=== PATIENT | female | born 1950 | race Two or more races ===

== ENCOUNTER 2016-09-21 00:41 | Emergency (ER) | payer MEDICAID, OTHER ==
[~2016-09-21] VITALS: Ht 152.4 cm; Wt 52.2 kg
--- NOTE | 2016-09-21 00:53 | NUR ---
Pt walked into ER c/o fall that happen at 1700 on 09/20/16. Pt states was [place] and tripped on suit case. Pt states hit head on floor and now feeling dizzy. Pt is unsure is she had LOC. pt is alert, oriented x 2, no resp distress noted or reported upon assessment... md at bedside...
[2016-09-21] MEDS ORDERED: NEOMY/BACITRA/POLYMYXIN B OINT UD PACKET TP ONE ×2 (02:00→02:06)
--- NOTE | 2016-09-21 02:02 | NUR ---
Note undone in EDM - 09/21/16 at 0205 by JUAN FRANCISCO Patient does not wish to proceed with medical care recommended by Dr. Morgan ). Patient given information related to possible complications, up to and including , which could occur as a result of leaving the hospital at this time. Patient verbalizes understanding of risks involved due to leaving against medical advice. Patient has signed AMA form. Pt advised to seek assistance with mental health professional, to have psych meds refilled, ERMD advised to have pt seen at [facility]... pt states he will comply and make appt... pt denied s/i, h/i, auditory/visual hallucinations... pt walked out of ER unassisted with belongings at side, father met pt in waiting room...
--- NOTE | 2016-09-21 02:23 | NUR ---
Patient discharged to home in stable conditon. Written and verbal after care instructions given. Patient verbalizes understanding of instructions. pt walked out of ER unassisted, with daughter and belongings at side...
[2016-09-21 02:24] VITALS: BP 131/94
[2016-09-21] MEDS ORDERED: OXYCODONE/APAP 5-325 MG TABLET ONE (02:27)
[2016-09-21] MEDS ORDERED: OXYCODONE/APAP 5-325 MG TABLET PO ONE (02:30)
== END 2016-09-21 02:25 | disposition home or self-care (01) ==
LOC: ER 00:43
DX: S80.211A Abrasion, right knee, initial encounter (principal); S09.90XA Unspecified injury of head, initial encounter; R51 Headache; W01.0XXA Fall on same level from slipping, tripping and stumbling without subsequent striking against object, initial encounter; Y93.89 Activity, other specified; Y99.8 Other external cause status; Y92.89 Other specified places as the place of occurrence of the external cause
CPT/HCPCS: 70450; 73560; 99284; A4663